=== PATIENT | female | born 2000 | race Caucasian/White ===

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

== ENCOUNTER 2021-03-07 21:27 | Emergency (ER) | payer OTHER | END 2021-03-07 23:47 | disposition left against medical advice (07) | LOC: ER1 21:27 | DX: Z53.21 Procedure and treatment not carried out due to patient leaving prior to being seen by health care provider (principal); Z20.822 Contact with and (suspected) exposure to COVID-19 | CPT/HCPCS: U0002 ==

== ENCOUNTER → 2021-04-29 | Outpatient (CLI) | payer OTHER ==
[2021-04-29 12:09] LABS: BORDETELLA PARAPERTUSSIS Not Detected (Not Detectd); BORDETELLA PERTUSSIS Not Detected (Not Detectd); CHLAMYDIA PNEUMONIAE Not Detected (Not Detectd); CORONAVIRUS HKU1 Not Detected (Not Detectd); CORONAVIRUS NL63 Not Detected (Not Detectd); CORONAVIRUS OC43 Not Detected (Not Detectd); CORONOAVIRUS 229E Not Detected (Not Detectd); HUMAN METAPNEUMOVIRUS Not Detected (Not Detectd); HUMAN RHINOVIRUS/ENTEROVIRUS Not Detected (Not Detectd); INFLUENZA A Not Detected (Not Detectd); INFLUENZA B Not Detected (Not Detectd); MYCOPLASMA PNEUMONIAE Not Detected (Not Detectd); PARAINFLUENZA VIRUS 1 Not Detected (Not Detectd); PARAINFLUENZA VIRUS 2 Not Detected (Not Detectd); PARAINFLUENZA VIRUS 3 Not Detected (Not Detectd); PARAINFLUENZA VIRUS 4 Not Detected (Not Detectd); RESPIRATORY SYNCYTIAL VIRUS Not Detected (Not Detectd)
[2021-04-29 12:32] LABS: HEMOGLOBIN 13.4 gm/dl (12.3-15.3); RED BLOOD COUNT 4.51 M/UL (4.00-5.10)
[2021-04-29 12:49] LABS: BUN/CREATININE RATIO 7 (0-10)
[2021-04-29 13:18] LABS: SARS-CoV-2 NOT DETECTED (Not Detectd)
== END ==
LOC: LAB 11:03
PROVIDERS: Physician Assistant
DX: J32.9 Chronic sinusitis, unspecified (principal); E78.5 Hyperlipidemia, unspecified; Z20.822 Contact with and (suspected) exposure to COVID-19
CPT/HCPCS: 36415; 80053; 80061; 85025; 87633

== ENCOUNTER → 2021-06-10 | Outpatient (CLI) | payer OTHER | LOC: KOH-I 14:28 | DX: R10.13 Epigastric pain (principal) | CPT/HCPCS: 74018 ==

== ENCOUNTER → 2021-06-24 | Outpatient (CLI) | payer OTHER | LOC: KOH-I 08:49 | DX: R10.11 Right upper quadrant pain (principal); K76.0 Fatty (change of) liver, not elsewhere classified; R14.3 Flatulence | CPT/HCPCS: 74018; 76700 ==

== ENCOUNTER → 2021-11-03 | Outpatient (CLI) | payer OTHER ==
[2021-11-03 13:03] LABS: HEMOGLOBIN 13.4 gm/dl (12.3-15.3); RED BLOOD COUNT 4.48 M/UL (4.00-5.10); WHITE BLOOD COUNT 5.3 K/UL (4.5-11.0)
[2021-11-03 13:31] LABS: BUN/CREATININE RATIO 7 (0-10)
[2021-11-04 16:12] LABS: ENDOMYSIAL ANTIBODY IGA Negative (Negative); IMMUNOGLOBULIN A, QN, SERUM 137 mg/dL (87-352); T-TRANSGLUTAMINASE (TTG) IGA <2 U/mL (0-3)
== END ==
LOC: LAB 12:38
PROVIDERS: Physician Assistant
DX: R10.13 Epigastric pain (principal); R19.7 Diarrhea, unspecified; E78.5 Hyperlipidemia, unspecified; E66.9 Obesity, unspecified
CPT/HCPCS: 36415; 80053; 80061; 82150; 82784; 83690; 84439; 84443; 85025

== ENCOUNTER → 2021-11-11 | Day surgery (SDC) | payer OTHER ==
[~2021-11-11] MED LIST changes: +BUSPAR 10MG10 MG PO; +FOLIC ACID1 MG PO; +HYDROXYCHLOROQ200 MG PO; +PREDNISONE10 MG PO; +ROBAXIN 750 MG750 MG PO; +SPRINTEC 28 DA1 EACH PO
== END | disposition home or self-care (01) ==
LOC: OR 07:21
DX: K29.50 Unspecified chronic gastritis without bleeding (principal); K21.9 Gastro-esophageal reflux disease without esophagitis; R19.7 Diarrhea, unspecified
CPT/HCPCS: 84703; J2704; J7040